=== PATIENT | male | born 1945 | race African-American/Black ===

== ENCOUNTER 2017-05-24 06:34 | Emergency (ER) | payer OTHER ==
[~2017-05-24] VITALS: Ht 205.7 cm; Wt 90.7 kg
[2017-05-24 06:45] VITALS: BP 166/97
--- NOTE | 2017-05-24 06:55 | PHYS DOC ---
Past Medical History Past Medical History: Other Additional Past Medical Histor: CHRONIC LOWER BACK PAIN Past Surgical History: No Surgical History Alcohol Use: None Drug Use: None Adult General Chief Complaint Chief Complaint: BACK PAIN OR INJURY HPI HPI Patient is a 71 year old male who presents with left flank pain/lower back pain that has been present for the past 3 days. Patient states the pain was worse this morning therefore came the emergency room. Patient denies any radiation of pain. Patient states movement makes it worse. Patient took Motrin with minimal relief. Patient denies any fevers. Patient denies any dysuria. Patient denies any nausea/vomiting/diarrhea. Patient denies any chest pain or shortness of breath. Pt states he does not have a history of kidney stones. Review of Systems Review of Systems GEN: Denies fevers, chills, sweats HEENT: Denies blurred vision, sore throat CV: Denies chest pain RESP: Denies shortness of air, cough GI: Denies n/v/d NEURO: Denies confusion, dizziness MSK: Left flank/lower back. Current Medications Current Medications Current Medications Medications (Trade) Dose Ordered Sig/Rebeca Start Time Stop Time Status Last Admin Dose Admin Ibuprofen (Motrin) 800 mg 1X ONCE 05/24/17 07:00 05/24/17 07:01 DC 05/24/17 07:00 800 MG Allergies Allergies Allergies Coded Allergies Type Severity Reaction Last Updated Verified No Known Drug Allergies 05/24/17 No Physical Exam Physical Exam GEN.: No apparent distress. Alert and oriented. HEENT: Head is normocephalic, atraumatic NECK: Supple. LUNGS: CTAB. HEART: RRR, S1, S2 present. Peripheral pulses intact ABDOMEN: Soft, nontender. Positive bowel sounds. EXTREMITIES: Without any cyanosis. NEUROLOGIC: Normal speech, normal tone PSYCHIATRIC: Normal affect, normal mood. SKIN: No ulcerations Back: Left CVA tenderness to palpation with paraspinous tenderness to palpation the left, no midline tenderness Current Patient Data Vital Signs Vital Signs Date Time Temp Pulse Resp B/P (MAP) Pulse Ox O2 Delivery O2 Flow Rate FiO2 05/24/17 06:45 97.9 60 16 99 Room Air 97.9 Lab Values Laboratory Tests Test 05/24/17 07:05 05/24/17 07:14 Urine Collection Type Unknown Urine Color Yellow Urine Clarity Clear Urine pH 5.5 Urine Specific [place] 1.015 Urine Protein Negative mg/dL (NEG-TRACE) Urine Glucose (UA) Negative mg/dL (NEG) Urine Ketones (Stick) Negative mg/dL (NEG) Urine Blood Negative (NEG) Urine Nitrite Negative (NEG) Urine Bilirubin Negative (NEG) Urine Urobilinogen Dipstick 1.0 mg/dL (0.2 mg/dL) Urine Leukocyte Esterase Negative (NEG) Urine RBC 0 /HPF (0-2) Urine WBC Occ /HPF (0-4) Urine Squamous Epithelial Cells Occ /LPF Urine Bacteria 0 /HPF (0-FEW) Urine Mucus Slight /LPF White Blood Count 4.6 x10^3/uL (4.0-11.0) Red Blood Count 5.85 x10^6/uL (4.30-5.70) H Hemoglobin 16.8 g/dL (13.0-17.5) Hematocrit 51.8 % (39.0-53.0) Mean Corpuscular Volume 89 fL (79-100) Mean Corpuscular Hemoglobin 29 pg (25-35) Mean Corpuscular Hemoglobin Concent 33 g/dL (31-37) Red Cell Distribution Width 15.0 % (11.5-14.5) H Platelet Count 123 x10^3/uL (140-400) L Neutrophils (%) (Auto) 34 % (31-73) Lymphocytes (%) (Auto) 52 % (24-48) H Monocytes (%) (Auto) 11 % (0-9) H Eosinophils (%) (Auto) 2 % (0-3) Basophils (%) (Auto) 1 % (0-3) Neutrophils # (Auto) 1.6 x10^3uL (1.8-7.7) L Lymphocytes # (Auto) 2.4 x10^3/uL (1.0-4.8) Monocytes # (Auto) 0.5 x10^3/uL (0.0-1.1) Eosinophils # (Auto) 0.1 x10^3/uL (0.0-0.7) Basophils # (Auto) 0.0 x10^3/uL (0.0-0.2) Sodium Level 140 mmol/L (136-145) Potassium Level 4.5 mmol/L (3.5-5.1) Chloride Level 104 mmol/L (98-107) Carbon Dioxide Level 32 mmol/L (21-32) Anion Gap 4 (6-14) L Blood Urea Nitrogen 19 mg/dL (8-26) Creatinine 1.6 mg/dL (0.7-1.3) H Estimated GFR (Cockcroft-Gault) 42.7 BUN/Creatinine Ratio 12 (6-20) Glucose Level 90 mg/dL (70-99) Calcium Level 9.6 mg/dL (8.5-10.1) Total Bilirubin 1.1 mg/dL (0.2-1.0) H Aspartate Amino Transferase (AST) 47 U/L (15-37) H Alanine Aminotransferase (ALT) 57 U/L (16-63) Alkaline Phosphatase 57 U/L (46-116) Total Protein 8.4 g/dL (6.4-8.2) H Albumin 3.9 g/dL (3.4-5.0) Albumin/Globulin Ratio 0.9 (1.0-1.7) L Laboratory Tests 05/24/17 07:14 Laboratory Tests 05/24/17 07:14 EKG EKG [] Radiology/Procedures Radiology/Procedures CT of the abdomen and pelvis without contrast, 05/24/2017: History: Left flank pain Noncontrast scans were obtained through the urinary tract utilizing the renal stone protocol. This is a limited study for evaluation of the possibility of urinary tract calculi. There is mild bilateral renal cortical scarring. No intrarenal calculi are seen. There is a small cyst in the anterior aspect of the left kidney. The renal collecting systems and ureters are not dilated. The nondilated distal ureters cannot be clearly traced through the pelvis in this patient. Multiple pelvic calcifications are most likely vascular. The partially filled urinary bladder is unremarkable. The unopacified liver shows no abnormality. The gallbladder is unremarkable. The pancreas cannot be clearly from unopacified bowel. The spleen is of normal size. There is moderate aortoiliac calcific plaquing without evidence of aneurysm. No abdominal or pelvic adenopathy is seen. The prostate gland is at the upper limits of normal in size. There is a moderate amount of stool in the colon. A couple of small scattered colonic diverticula are noted. The appendix is visualized and shows no abnormality. There is no evidence of bowel obstruction. No free fluid or free air is evident in the abdomen or pelvis. Moderate degenerative changes are present in the lower lumbar spine. There is mild to moderate associated central spinal stenosis and foraminal stenosis at several levels. IMPRESSION: 1. No urinary tract calculi are identified. 2. Miscellaneous chronic findings as described above.[] Course & Med Decision Making Course & Med Decision Making Pertinent Labs and Imaging studies reviewed. (See chart for details) MDM: After reviewing the chart, CC/HPI/PMH, physical exam, [lab results], [ radiological results], I do not believe the patient has intra-abdominal emergency warranting further workup and/or admission at this time. Discussed the abnormal blood work with the patient in regards to his creatinine of 1.6 and recommended he follow-up with his PCP for further evaluation and management of his kidney function. Patient is stable for discharge. Explained to the patient we will treat him for back spasms with anti-inflammatories and muscle relaxers. Additional verbal discharge instructions were provided to the patient and that if symptoms get worse or any new symptoms arise that are worrisome to the patient he is to return to the emergency room immediately Dragon Disclaimer Dragon Disclaimer This electronic medical record was generated, in whole or in part, using a voice recognition dictation system. Departure Departure Impression: Primary Impression: Flank pain, acute Disposition: 01 HOME, SELF-CARE Condition: IMPROVED Patient Instructions: Flank Pain, [id number] Additional Instructions: Please follow up with her family doctor in one to 2 days and please address your kidney function with your doctor. Scripts Diazepam (Valium) 10 Mg Tablet 5 MG PO TID PRN Y for MUSCLE SPASMS for 5 Days, #15 TAB Prov: KASSANDRA NELSON DO 05/24/17 Ibuprofen (IBUPROFEN) 800 Mg Tablet 800 MG PO PRN Q6HRS Y for INFLAMMATION for 10 Days, #40 TAB Prov: KASSANDRA NELSON DO 05/24/17 KASSANDRA NELSON DO May 24, 2017 06:55
[2017-05-24] MEDS ORDERED: IBUPROFEN 800 MG TABLET. PO ONE (07:00)
[2017-05-24 07:26] LABS: BILIRUBIN,URINE NEGATIVE (NEG); GLUCOSE,URINE NEGATIVE (NEG); NITRITE,URINE NEGATIVE (NEG); PH,URINE 5.5; PROTEIN,URINE NEGATIVE (NEG-TRACE)
[2017-05-24 07:28] LABS: BASO % 1 % (0-3); EOS % 2 % (0-3); HEMATOCRIT 51.8 % (39.0-53.0); HEMOGLOBIN 16.8 g/dL (13.0-17.5); LYMPH # 2.4 x10^3/uL (1.0-4.8); LYMPH % 52 % (24-48); MEAN CORPUSCULAR HEMOGLOBIN 29 pg (25-35); MEAN CORPUSCULAR HGB CONC 33 g/dL (31-37); MEAN CORPUSCULAR VOLUME 89 fL (79-100); MONO % 11 % (0-9); NEUT % 34 % (31-73); PLATELET COUNT 123 x10^3/uL (140-400); RED BLOOD COUNT 5.85 x10^6/uL (4.30-5.70); WHITE BLOOD COUNT 4.6 x10^3/uL (4.0-11.0)
[2017-05-24 07:35] LABS: BACTERIA,URINE 0 /HPF (0-FEW); RBC,URINE 0 /HPF (0-2); SQUAMOUS EPITHELIAL CELL,UR OCC /LPF; WBC,URINE OCC /HPF (0-4)
[2017-05-24 07:36] LABS: CALCIUM 9.6 mg/dL (8.5-10.1); CREATININE 1.6 mg/dL (0.7-1.3); GFR 42.7; POTASSIUM 4.5 mmol/L (3.5-5.1)
[2017-05-24 07:43] LABS: ALBUMIN 3.9 g/dL (3.4-5.0); ALBUMIN/GLOBULIN RATIO 0.9 (1.0-1.7); TOTAL BILIRUBIN 1.1 mg/dL (0.2-1.0); TOTAL PROTEIN 8.4 g/dL (6.4-8.2)
--- NOTE | 2017-05-24 07:52 | RAD ---
CT of the abdomen and pelvis without contrast, 05/24/2017: History: Left flank pain Noncontrast scans were obtained through the urinary tract utilizing the renal stone protocol. This is a limited study for evaluation of the possibility of urinary tract calculi. There is mild bilateral renal cortical scarring. No intrarenal calculi are seen. There is a small cyst in the anterior aspect of the left kidney. The renal collecting systems and ureters are not dilated. The nondilated distal ureters cannot be clearly traced through the pelvis in this patient. Multiple pelvic calcifications are most likely vascular. The partially filled urinary bladder is unremarkable. The unopacified liver shows no abnormality. The gallbladder is unremarkable. The pancreas cannot be clearly from unopacified bowel. The spleen is of normal size. There is moderate aortoiliac calcific plaquing without evidence of aneurysm. No abdominal or pelvic adenopathy is seen. The prostate gland is at the upper limits of normal in size. There is a moderate amount of stool in the colon. A couple of small scattered colonic diverticula are noted. The appendix is visualized and shows no abnormality. There is no evidence of bowel obstruction. No free fluid or free air is evident in the abdomen or pelvis. Moderate degenerative changes are present in the lower lumbar spine. There is mild to moderate associated central spinal stenosis and foraminal stenosis at several levels. IMPRESSION: 1. No urinary tract calculi are identified. 2. Miscellaneous chronic findings as described above. PQRS Compliance Statement: One or more of the following individualized dose reduction techniques were utilized for this examination: 1. Automated exposure control 2. Adjustment of the mA and/or kV according to patient size 3. Use of iterative reconstruction technique
[2017-05-24] MEDS ORDERED: IBUP-1060 PO (08:05)
[2017-05-24] MEDS ORDERED: DIAZ10TA2 PO (08:05)
== END 2017-05-24 08:21 | disposition home or self-care (01) ==
LOC: ER 06:34
DX: R10.9 Unspecified abdominal pain (principal); M54.5 Low back pain; G89.29 Other chronic pain
CPT/HCPCS: 36415; 74176; 80053; 81001; 85027; 99285-25

== ENCOUNTER → 2017-07-06 | Day surgery (SDC) | payer OTHER ==
[~2017-07-06] MED LIST: AMLO5TAB2 PO; DIAZ10TA2 PO; DOCU-109 PO; HYDROmorphone 2 MG/ML VIAL IV PRN; IBUP-1060 PO; IV RINGERS,LACTATED 1000ML 1,000 ML IV SCH; LIDOCAINE 1% 1 ML SYRINGE. ID PRN; LISI1TAB5 PO; MORPHINE SULFATE 2 MG/ML DISP.SYRIN. IV PRN; ONDANSETRON PF 4 MG/2 ML VIAL. IV PRN; PROCHLORPERAZINE 10 MG/2 ML VIAL. IV PRN; PROPOFOL 40 ML IV ONE; fentaNYL PF VIAL 100 MCG/2 ML VIAL IV PRN
--- NOTE | 2017-07-06 08:51 | PDOC1 ---
HISTORY & PHYSICAL H&P Adam Martinez [id number] 1945 06/11/2017 11:45 AM 11/01 [facility], [facility] OUR PATIENTS COME FIRST [address] [place], [place] [id number] Ph. [phone] Patient: Adam Martinez Date of : 1945 Date: 06/11/2017 11:45 AM Historian: self Visit Type: Consult This 71 year old male presents for constipation and Screening colonoscopy. History of Present Illness: 1. constipation Denies aggravating symptoms. Denies relieving factors. Pertinent negatives include abdominal pain, black tarry stools, bleeding with bowel movement, bloating, change in appetite, nausea, vomiting and weight loss. Additional information: Patient usually has bm 4 to 5 days. If takes something then will have BM. Linzess given as sample worked. Insurance did not cover the meds. May be needed precert. 2. Screening colonoscopy No prior screening. Denies risk factors. Associated symptoms include constipation. Pertinent negatives include abdominal pain, change in bowel habits, change in stool caliber, decreased appetite, diarrhea, melena, nausea, rectal bleeding, vomiting, weight gain and weight loss. Additional information : No family history of colon cancer, No family history of Crohn's/colitis, No NSAID/ASA use and Never had colonoscopy since . INTAKE COMMENTS: Intake Comments: Nurses Notes: Pt is here today with complaints of constipation , Pt says he has had this issue now for years. Pt can go a week with out a BM pt is currently taking lizness that he says helps but complains the insurance company will not fill med, so pt has been using Colace that he states is not helping. PAST MEDICAL/SURGICAL HISTORY (Detailed) Disease/disorder Onset Date Management Date Comments hemorrhoides surgery Medications (Active): Started Medication Directions Instruction Stopped 05/17/2017 amlodipine 5 mg tablet take 1 tablet by oral route every day Colace 100 mg capsule take 1 capsule by oral route every day at bedtime as needed 05/17/2017 lisinopril 20 mg-hydrochlorothiazide 12.5 mg tablet take 1 tablet by oral route every day Allergies: Ingredient Reaction Medication Name Comment NO KNOWN ALLERGIES REVIEW OF SYSTEMS System Neg/Pos Details Constitutional Negative Chills, fever, malaise, weight gain and weight loss. ENMT Negative Sore throat. Eyes Negative Double vision. Respiratory Negative Dyspnea and wheezing. Cardio Negative Chest pain and irregular heartbeat/palpitations. GI Positive Constipation, See HPI. GI Negative Abdominal pain, black tarry stools, bleeding with bowel movement, bloating, change in appetite, change in bowel habits, change in stool caliber, decreased appetite, diarrhea, melena, nausea, see HPI, rectal bleeding and vomiting. Negative Dysuria and hematuria. Endocrine Negative Cold intolerance and heat intolerance. Psych Negative Anxiety. Integumentary Negative Hives and rash. MS Negative Joint pain. Shawn/Lymph Negative Easy bleeding and easy bruising. Allergic/Immuno Negative Food allergies. VITAL SIGNS Time BP mm/Hg Pulse /min Resp /min Temp F Ht ft Ht in Ht cm Wt lb Wt kg BMI kg/ m2 BSA m2 O2 Sat% 11:35 AM 112/76 68 16 98.0 0.0 79.00 200.66 203.00 92.079 22.87 99 Time Measured by 11:[address] PHYSICAL EXAM: Exam Findings Details Constitutional Normal Well developed. Eyes Normal Conjunctiva - Right: Normal, Left: Normal. Sclera - Right: Normal, Left: Normal. Nasopharynx Normal Lips/teeth/gums - Normal. Neck Exam Normal Inspection - Normal. Thyroid gland - Normal. Respiratory Normal Inspection - Normal. Auscultation - Normal. Cardiovascular Normal Regular rate and rhythm. No murmurs, gallops, or rubs. Vascular Normal Pulses - Carotids: Normal, Femoral: Normal, Dorsalis pedis: Normal. Abdomen Normal Inspection - Normal. Anterior palpation - No guarding. No abdominal tenderness. No hepatic enlargement. No splenic enlargement. No hernia. No ascites. Skin Normal Inspection - Normal. Extremity Normal No edema. Psychiatric * Oriented to time, place, person and situation. Psychiatric Normal Appropriate mood and effect. Assessment/Plan # Detail Type Description 1. Assessment Slow transit constipation (K59.01). Patient Plan Continue Linzess 145 mg daily. Samples have been given. 2. Assessment Encounter for screening colonoscopy (Z12.11). Patient Plan schedule colonoscopy at Plan Orders Further diagnostic evaluations ordered today include(s) Colonoscopy to be performed today. He is to schedule a follow-up visit with Cristobal Richards MD upon completion of work-up Electronically signed by: Cristobal Richards MD 06/11/2017 03:01 PM Document generated by: Cristobal Richards 06/11/2017 03:01 PM Ladonna Castanon MD, Family Practice; Ronal Adams MD Internal Medicine; Fabiola Meehan MD, Internal Medicine; Jaxon Richards MD Internal Medicine; Cristobal Richards MD, Gastroenterology; Tremaine Elena MD, Rheumatology, S. Fazal Ellis, Physical Medicine/Rehab J. Leeann PEREZN ------ 07/06/17 Patient seen and examined. No change in H&P. CRISTOBAL RICHARDS MD Jul 06, 2017 08:51
[2017-07-06 09:50] VITALS: BP 173/69
== END | disposition home or self-care (01) ==
LOC: ENDOS 06:50
PROVIDERS: ATTEND Internal Medicine Gastroenterology
DX: K57.30 Diverticulosis of large intestine without perforation or abscess without bleeding (principal); I48.91 Unspecified atrial fibrillation; I10 Essential (primary) hypertension; F17.200 Nicotine dependence, unspecified, uncomplicated
CPT/HCPCS: 45378; J2704

== ENCOUNTER → 2017-08-16 | Outpatient (CLI) | payer OTHER ==
[2017-07-06 09:50] VITALS: BP 173/69
[~2017-08-16] MED LIST changes: -HYDROmorphone 2 MG/ML VIAL IV PRN; -IV RINGERS,LACTATED 1000ML 1,000 ML IV SCH; -LIDOCAINE 1% 1 ML SYRINGE. ID PRN; -MORPHINE SULFATE 2 MG/ML DISP.SYRIN. IV PRN; -ONDANSETRON PF 4 MG/2 ML VIAL. IV PRN; -PROCHLORPERAZINE 10 MG/2 ML VIAL. IV PRN; -PROPOFOL 40 ML IV ONE; +REGADENOSON 0.4 MG/5 ML DISP.SYRIN. IV ONE; -fentaNYL PF VIAL 100 MCG/2 ML VIAL IV PRN
--- NOTE | 2017-08-16 09:56 | CARD ---
APPROVED REPORT EXAM: Two-dimensional and M-mode echocardiogram with Doppler and color Doppler. Other Information Quality : Excellent INDICATION Atrial Fibrillation 2D DIMENSIONS RVDd2.7 (2.9-3.5cm)Left Atrium(2D)4.1 (1.6-4.0cm) IVSd1.1 (0.7-1.1cm)Aortic Root(2D)3.0 (2.0-3.7cm) LVDd5.6 (3.9-5.9cm)LVOT Diameter2.2 (1.8-2.4cm) PWd1.0 (0.7-1.1cm)LVDs3.8 (2.5-4.0cm) FS (%) 31.9 %SV92.2 ml LVEF(%)59.3 (>50%) Aortic Valve AoV Peak Tigre.136.0cm/sAoV VTI26.9cm AO Peak GR.7.4mmHgLVOT Peak Tigre.83.3cm/s AO Mean GR.4mmHgAVA (VMAX)2.38cm2 TRELL (VTI)2.30cm2 Mitral Valve MV E Vzwmsbbk91.3cm/sMV DECEL UJGL077gj MV A Velocity0.5cm/sE/A Ubqim873.6 Tricuspid Valve TR P. Naecaiui853om/sRAP HJTXDEIC8zvIp TR Peak Gr.12jxHlDUKO89inCk LEFT VENTRICLE The left ventricle is normal size. There is normal left ventricular wall thickness. The left ventricu lar systolic function is mildly reduced likely due to atrial fibrillation. EF 45% There is mild globa l hypokinesis. Moderate diastolic dysfunction noted. RIGHT VENTRICLE The right ventricle is mildly dilated. The right ventricular systolic function is normal. ATRIA The left atrium is mildly dilated. The right atrium is mildly dilated. The interatrial septum is inta ct with no evidence for an atrial septal defect or patent foramen ovale as noted on 2-D or Doppler im aging. AORTIC VALVE The aortic valve is sclerotic, with partial fusion of the left and non-coronary cusps and but appears tricuspid. Doppler and Color Flow revealed no significant aortic regurgitation. There is no signific ant aortic valvular stenosis. MITRAL VALVE The mitral valve is calcified but opens well. There is no evidence of mitral valve prolapse. There is no mitral valve stenosis. Doppler and Color-flow revealed trace to mild mitral regurgitation. TRICUSPID VALVE The tricuspid valve is normal in structure and function. Doppler and Color Flow revealed trace to mil d tricuspid regurgitation. The PA pressure was estimated at 41 mmHg. There is mild pulmonary hyperten lalita. There is no tricuspid valve stenosis. PULMONIC VALVE Doppler and Color Flow revealed trace to mild pulmonic valvular regurgitation. There is no pulmonic v alvular stenosis. GREAT VESSELS The aortic root is normal in size. The ascending aorta is normal in size. The IVC is normal in size a nd collapses >50% with inspiration. PERICARDIAL EFFUSION There is no evidence of significant pericardial effusion. Critical Notification Critical Value: No <Conclusion> The left ventricular systolic function is mildly reduced likely due to atrial fibrillation. EF 45% There is mild global hypokinesis. Doppler and Color Flow revealed trace to mild tricuspid regurgitation. The PA pressure was estimated at 41 mmHg. There is mild pulmonary hypertension.
--- NOTE | 2017-08-16 12:12 | RAD ---
APPROVED REPORT Test Type: Pharmacological Stress Nurse/Tech: Sonam Womack R.N. Test Indications: Afib Cardiac History: HTN Medications: SEE EMR Medical History: SEE EMR Resting ECG: Afib Resting Heart Rate: 51 bpm Resting Blood Pressure: 146/95mmHg Pretest Chest Pain: None Nurse/Tech Notes S1S2, heart rate irregular, lungs CTA, denied chest pain or SOA. Consent: The procedure was explained to the patient in lay terms. Informed consent was witnessed. Rene eout was entered into [employer]. History and Stress Test performed by Sonam Womack R.N. Pharm. Details Pharmacologic stress testing was performed using 0.4mg per 5ml of regadenoson given intravenously ove r 7-10 seconds. Stress Symptoms Slightly SOA. POST EXERCISE Reason for Termination: Infusion complete Max HR: 89 bpm Max Blood Pressure: 178/98mmHg Blood Pressure response to exercise: Normal blood pressure response during stress. Heart Rate response to exercise: Normal Chest Pain: No. Arrhythmia: No. ST Change: No. INTERPRETATION Stress EKG Conclusion: No acute changes were noted. Imaging Protocol IMAGE PROTOCOL: Rest Tc-99m/stress Tc-99m 1 day Rest: Stress: Viability: Radiopharm.Tc99m FfplwtnfsVi34g Sestamibi Ngse60gVm 33.1mCi Duration 15min. 10min. Img Date 08/16/2017 08/16/2017 Inj-Img Ebgr48apm. 60min. Rest Admin Site:IV - Right AntecubitalAdministrator:Keith Bojorquez RT (R)(N) Stress Admin Site: IV - Right AntecubitalAdministrator: Betsey Mendoza RT (R)(N) STRESS DATA End Diast. Vol.163.0mlAv. Heart Rate56.0bpm End Syst. Vol.70.0mlCO Index BSA0.0L/min Myocardial Jnqt239.0gEject. Qfyqkxft40.0% Stress Rates Pk. Fill Rate2.51EDV/secLVtime Pk. Fill 228.75msec Pk. Empty Rate2.23ESV/secLVtime Pk. Ycocn896.43msec 11/03 Pk. Fill0.68EDV/sec Stress Scores Regional WT1.00Summed WT6.00 Regional WM0.00Summed WM9.00 The rest and stress images show normal perfusion, normal contraction and thickening. Wall Motion Normal wall motion. EF > 60% LV Perf. Quant 17 Seg. SSS1.00 17 Seg. SRS0.00 17 Seg. SDS1.00 Stress Defect Extent (% LAD)6.30Rest Defect Extent (% LAD)0.00Rev. Defect Extent (% LAD)0.00 Stress Defect Extent (% LCX) 0.00Rest Defect Extent (% LCX)0.00Rev. Defect Extent (% LCX)0.00 Stress Defect Extent (% RCA)0.00Rest Defect Extent (% RCA)0.00Rev. Defect Extent (% RCA)0.00 Stress Defect Extent (% AMY)2.20Rest Defect Extent (% AMY)0.00Rev. Defect Extent (% AMY)0.00 Other Information Quality:Fair Risk Assessment: Low Risk Conclusion 1. No evidence of EKG changes with stress testing. 2. Normal perfusion at stress/rest. 3. Low risk study. 4. EF > 60%.
== END | disposition home or self-care (01) ==
LOC: NM 07:15
PROVIDERS: ATTEND Internal Medicine Cardiovascular Disease
DX: I48.91 Unspecified atrial fibrillation (principal); I10 Essential (primary) hypertension; I27.20 Pulmonary hypertension, unspecified; I49.5 Sick sinus syndrome
CPT/HCPCS: 78452; 93017; 93306; 96374; 96375; 96376; A9500; J2785

== ENCOUNTER → 2017-08-23 | Day surgery (SDC) | payer OTHER ==
[~2017-08-23] MED LIST changes: +0.9 % SODIUM CHLORIDE 10 ML DISP.SYRIN. IV PRN; +HYDROmorphone 2 MG/ML VIAL IV PRN; +IV RINGERS,LACTATED 1000ML 1,000 ML IV SCH; +LIDOCAINE 1% PF 2 ML VIAL. ID PRN; +MORPHINE SULFATE 2 MG/ML DISP.SYRIN. IV PRN; +ONDANSETRON PF 4 MG/2 ML VIAL. IV PRN; +PROCHLORPERAZINE 10 MG/2 ML VIAL. IV PRN; +PROPOFOL 20 ML IV ONE; -REGADENOSON 0.4 MG/5 ML DISP.SYRIN. IV ONE; +RIVA20TA2 PO; +fentaNYL PF VIAL 100 MCG/2 ML VIAL IV PRN
[2017-08-23 09:27] LABS: BASO # 0.1 x10^3/uL (0.0-0.2); BASO % 1 % (0-3); EOS % 1 % (0-3); HEMATOCRIT 46.9 % (39.0-53.0); HEMOGLOBIN 15.2 g/dL (13.0-17.5); LYMPH # 2.5 x10^3/uL (1.0-4.8); LYMPH % 54 % (24-48); MEAN CORPUSCULAR HEMOGLOBIN 28 pg (25-35); MEAN CORPUSCULAR HGB CONC 32 g/dL (31-37); MEAN CORPUSCULAR VOLUME 88 fL (79-100); MONO % 12 % (0-9); NEUT % 32 % (31-73); PLATELET COUNT 133 x10^3/uL (140-400); RED BLOOD COUNT 5.36 x10^6/uL (4.30-5.70); WHITE BLOOD COUNT 4.6 x10^3/uL (4.0-11.0)
--- NOTE | 2017-08-23 09:29 | EKG ---
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
[2017-08-23 09:40] LABS: CREATININE 1.6 mg/dL (0.7-1.3); GFR 51.7; MAGNESIUM 1.9 mg/dL (1.8-2.4); POTASSIUM 4.1 mmol/L (3.5-5.1)
--- NOTE | 2017-08-23 11:02 | PDOC4 ---
PROCEDURE Procedure PROCEDURE Cardioversion INDICATIONS Atrial fibrillation PERFORMING physician Dr. Elaine COMPLICATIONS None PROCEDURE details An informed consent was obtained from patient. Anesthesiology team administered intravenous propofol for for deep sedation. Patient was then given 200 J of synchronized biphasic DC shock therapy with successful conversion of rhythm from atrial fibrillation to sinus rhythm. Patient tolerated the procedure well. He was hemodynamically stable and without any neurological deficits at the end of procedure. CONCLUSIONS Successful cardioversion of atrial fibrillation to sinus rhythm. BRITTANEY ELAINE MD Aug 23, 2017 11:02
--- NOTE | 2017-08-23 11:21 | EKG ---
[facility] [address] [place] [address] Test Date: 2017-08-23 Test Time: 11:18:32 Pat Name: BRIDGET RODRIGUES Department: Room: Gender: M Office Correspondent: RTICIA : 1945 Requested By: BRITTANEY HILL Order Number: [id number] Reading MD: Measurements Intervals [place] Rate: 59 P: 68 VT: 198 QRS: -12 QRSD: 92 T: 43 QT: 418 QTc: 418 Interpretive Statements SINUS RHYTHM ATRIAL PREMATURE COMPLEX(ES), BIGEMINY LEFTWARD AXIS INCOMPLETE RIGHT BUNDLE BRANCH BLOCK ABNORMAL ECG RI6.01 No previous ECG available for comparison
[2017-08-23 11:29] VITALS: BP 132/79
== END | disposition home or self-care (01) ==
LOC: SURG 08:38
PROVIDERS: ATTEND Internal Medicine Cardiovascular Disease
DX: I48.91 Unspecified atrial fibrillation (principal); I10 Essential (primary) hypertension; Z87.891 Personal history of nicotine dependence
CPT/HCPCS: 36415; 80048; 83735; 85025; 92960; 93005; J2704